=== PATIENT | male | born 1950 | race African-American/Black ===

== ENCOUNTER 2017-10-20 08:35 | Day surgery (SDC) | payer MEDICARE ==
[2017-10-19 11:26] LABS: HEMATOCRIT 47.3 % (42.0-54.0); HEMOGLOBIN 16.1 g/dL (13.5-17.5); MCH 29.8 pg (26.0-34.0); MCV 87.6 fL (80.0-100.0); MEAN PLATELET VOLUME 10.3 fL (7.4-10.4); RBC 5.4 10x6/uL (4.20-6.10); RDW 14.4 % (11.5-14.5); WBC 6.6 10x3/uL (4.8-10.8)
[~2017-10-20] VITALS: Ht 188 cm; Wt 108.9 kg
--- NOTE | ~2017-10-20 | OP ---
PATIENT NAME: EDGAR LEE MEDICAL RECORD: [id number] :50 LOCATION:[facility] ADMISSION DATE: SURGEON: JOSÉ MIGUEL PATTERSON DO DATE OF OPERATION: 10/20/2017 PROCEDURE PERFORMED: Right prepatellar bursectomy. PREOPERATIVE DIAGNOSIS: Right prepatellar bursitis. POSTOPERATIVE DIAGNOSIS: Right prepatellar bursitis. INDICATIONS: Mr. Lee is a 67-year-old male who presented to my office complaining of quite a few months of right prepatellar bursa problems, it would get inflamed and then go down and get inflamed and go down and he was tired of dealing with it and wanted something done with it, but he could not go into a squatting position or kneel with it and he asked it would be taken out. He was informed of the risks and benefits including damage to the infrapatellar branch of the saphenous nerve and he could be numb over the central portion of the knee due to the fact that, that nerve was very small and oftentimes injured with the skin incision. He was okay with that. I also informed that this could return, but we will do our best to get it taken out and have it stay away. He is okay with the risks and benefits, and consented to the procedure. SURGEON: José Miguel Patterson DO COMPLICATIONS: None. TOURNIQUET TIME: 17 minutes. DESCRIPTION OF PROCEDURE: The patient was taken to the operative suite, laid in the supine position, given 1 gram of Ancef preoperatively. After the Ancef was given and the tourniquet had been placed above the knee under the drapes, timeout was performed and everybody was in agreement as the correct side, site, and the patient. Incision was marked out over the prepatellar bursa and then, the right leg was exsanguinated with the Esmarch and the tourniquet was inflated. Once the tourniquet was inflated, the skin incision was down to the bursa and then the scissors and pickups were used to free up the bursa and excised it. Once it was excised completely, the wound was irrigated and tourniquet was let down at 17 minutes. All bleeders were coagulated at that time. The skin was then closed with 2-0 Vicryl in an inverted interrupted fashion and then a ZipLine was placed on the skin itself and then a Telfa and Tegaderm were placed on top of that, and an Jackson wrap was used to wrap up the knee. Blood loss was minimal. Complications were none. He was awakened and taken to the recovery room in stable condition. TRANSINT:[id number] Voice Confirmation ID: [id number] DOCUMENT ID: [id number] OPERATIVE REPORT [id number] EDGAR LEE MICHAEL D, DO at 1603 CC: [id number] DICTATION DATE: 10/20/17 1300 CONTROL ELECTRICIAN: 10/20/17 1403 [facility] [address] [place] [address]
[~2017-10-20 08:35] MED LIST: ASCORBIC ACID500 MG PO; BAYER CHEWABLE81 MG PO; VITAMIN D31000 UNI2 PO
[2017-10-20] MEDS ORDERED: [UNRECOGNIZED DRUG - OTHER] (09:27)
[2017-10-20 09:38] VITALS: BP 138/102; Ht 188 cm; Wt 108.9 kg
[2017-10-20] MEDS ORDERED: PERCOCET 5-3251 TAB PO (13:03)
[2017-10-20] MEDS ORDERED: DURICEF500 MG PO (13:03)
== END 2017-10-20 15:00 | disposition home or self-care (01) ==
LOC: D.OPS 08:35 → D.PAN 10:00 → D.OPS 10:30
PROVIDERS: Anesthesiology
DX: M70.41 Prepatellar bursitis, right knee (principal); Z01.812 Encounter for preprocedural laboratory examination

== ENCOUNTER → 2018-03-05 16:31 | Outpatient (CLI) | payer MEDICARE ==
[2017-10-20 09:38] VITALS: BMI 30.8
[~2018-03-05 16:31] MED LIST changes: +DURICEF500 MG PO; +HYDROCODON-ACE1 EAC7 PO; +PERCOCET 5-3251 TAB PO; +[UNRECOGNIZED DRUG - OTHER]
== END | disposition home or self-care (01) ==
LOC: D.MRI 16:31
DX: R22.9 Localized swelling, mass and lump, unspecified (principal)

== ENCOUNTER 2018-03-16 10:09 | Day surgery (SDC) | payer MEDICARE ==
[2018-03-15 11:03] LABS: HEMATOCRIT 46.6 % (42.0-54.0); HEMOGLOBIN 15.9 g/dL (13.5-17.5); MCH 29.7 pg (26.0-34.0); MCHC 34.1 g/dL (31.0-37.0); MCV 86.9 fL (80.0-100.0); MEAN PLATELET VOLUME 10.3 fL (7.4-10.4); RBC 5.36 10x6/uL (4.20-6.10); RDW 14.3 % (11.5-14.5)
[~2018-03-16] VITALS: Ht 188 cm; Wt 112.5 kg
--- NOTE | ~2018-03-16 | OP ---
PATIENT NAME: EDGAR LEE JR MEDICAL RECORD: [id number] :50 LOCATION:[facility] AD[facility]ION DATE: SURGEON: JOSÉ MIGUEL PATTERSON DO DATE OF OPERATION: 03/16/2018 PROCEDURE PERFORMED: Excision of the mass/hematoma, right lower extremity. PREOPERATIVE DIAGNOSIS: Mass, right lower extremity in the soft tissues. POSTOPERATIVE DIAGNOSIS: Mass, right lower extremity in the soft tissues. INDICATIONS: Mr. Lee is a 67-year-old male who presented to my office approximately 2 weeks ago with this mass in his right lower extremity just medial to the tibia bone about midway down the lower leg. He said it had not gotten any larger; however, did go to about 5 cm in size and he said it did bother him and was painful to push on it. I told him we could get an MRI and find out maybe getting an idea what it is, make sure it did not go to the bone. He had an MRI and the reading came back as possible abscess versus hematoma. I informed him of this and I asked him how bad it bothered him, he said it really hindered the activities he can do every day and he wanted it removed. He was consented for the procedure. He was aware of the risks and benefits including infection, bleeding, need for further surgery. I also told him that I would send it to pathology for identification. SURGEON: José Miguel Patterson DO DESCRIPTION OF PROCEDURE: The patient was taken to the operative suite, laid in supine position. Right lower extremity was prepped and draped in sterile fashion. Once it was prepped and draped, an incision was marked out directly over the mass just medial to the tibia above the midshaft area. A 6-cm incision was made over the mass. Careful dissection was made down to it that had been walled off. This was then penetrated with scissors and what appeared to be a large hematoma was what was inside of it. This was removed and put into a specimen cup and sent to pathology. Then, some of the wall that had been walled off was taken down as well. The bleeding was then coagulated at that time. After bleeding had been coagulated, the site was irrigated thoroughly and then the skin was closed with 2-0 Vicryl in inverted interrupted fashion and 4-0 Monocryl in horizontal mattress. Then, Adaptic, 4 x 4's, Kerlix, and then Coban was lightly dressed over the wound. The patient was awakened and taken to recovery room in stable condition. BLOOD LOSS: Minimal. COMPLICATIONS: None. TRANSINT:[id number] Voice Confirmation ID: [id number] DOCUMENT ID: [id number] OPERATIVE REPORT [id number] EDGAR LEE JR, MICHAEL D, DO at 0525 CC: [id number] DICTATION DATE: 03/16/18 1502 [employer] SALES CONSULTANT: 03/16/18 1554 [facility] 03/16/18 [id number] [place] [address]
[~2018-03-16 10:09] MED LIST changes: -HYDROCODON-ACE1 EAC7 PO
[2018-03-16 10:45] VITALS: BP 154/88; Ht 188 cm; Wt 112.5 kg
[2018-03-16] MEDS ORDERED: HYDROCODON-ACE1 EAC7 PO (14:58)
== END 2018-03-16 17:15 | disposition home or self-care (01) ==
LOC: D.OPS 10:09 → D.PAN 10:45 → D.OPS 11:15
PROVIDERS: Anesthesiology
DX: M79.81 Nontraumatic hematoma of soft tissue (principal); Z01.812 Encounter for preprocedural laboratory examination

== ENCOUNTER → 2018-08-31 09:42 | Outpatient (CLI) | payer MEDICARE ==
[2018-03-16 10:45] VITALS: BMI 31.9
--- NOTE | ~2018-08-31 | ST ---
PATIENT:EDGAR LEE JR MEDICAL RECORD: [id number] SEX: M LOCATION:[facility] ORDER #: ADMISSION DATE: 08/31/18 AGE OF PATIENT: 68 REFERRING PHYSICIAN: INTERPRETING PHYSICIAN: PILO BRENNAN MD DATE OF SERVICE: 08/31/2018 INDICATIONS: Angina, abnormal ECG. He was exercised on standard Abiodun protocol for 5 minutes, terminated due to achievement of maximum target heart rate response with 32 mCi of sestamibi injected at peak stress and 10 mCi used for rest images. FINDINGS: Gated SPECT reveals a preserved ejection fraction at 75%. There is a fixed perfusion defect inferiorly with decreased thickening and brightening of the inferior segments. SPECT IMAGING: Cardiolite was used as myocardial perfusion agent. There is a fixed perfusion defect inferiorly suggestive of previous inferior myocardial infarction. No other evidence of reversible ischemia. The remaining segments showed homogeneous uptake at rest and stress. OVERALL IMPRESSION: This is an abnormal nuclear stress test only and it shows fixed perfusion defect inferiorly. No ongoing ischemia. Preserved ejection fraction is 75%. Continue medical management of the coronary artery disease and cardiac risk factors. TRANSINT:[id number] Voice Confirmation ID: [id number] DOCUMENT ID: [id number] PILO BRENNAN MD CC: [id number] DICTATION DATE: 08/31/18 1541 INSIDE SALES REPRESENTATIVE: 09/01/18 0251 [facility] CLI 08/31/18 [id number] [place] [address]
[~2018-08-31 09:42] MED LIST changes: +HYDROCODON-ACE1 EAC7 PO
== END | disposition home or self-care (01) ==
LOC: D.HCCARDIO 09:30
DX: R07.9 Chest pain, unspecified (principal)

== ENCOUNTER → 2019-03-01 12:23 | Outpatient (CLI) | payer MEDICARE ==
[2018-03-16 10:45] VITALS: BMI 31.9
== END | disposition home or self-care (01) ==
LOC: D.RAD 12:23
PROVIDERS: ATTEND Family Medicine
DX: M54.5 Low back pain (principal)